=== PATIENT | female | born 1960 | race Caucasian/White ===

== ENCOUNTER → 2020-09-03 09:28 | Outpatient (CLI) | payer BC, SELFPAY ==
--- NOTE | ~2020-09-03 | XR_ITS ---
EXAMINATION: XR chest 2V 09/03/2020 09:52 INDICATION: Right upper lobe mass PROCEDURE: PA and lateral views of the chest COMPARISON: Comparison to multiple prior studies sequentially, with oldest reviewed study dated 05/24. FINDINGS: The lungs are clear. No evidence for right upper lobe mass. The cardiomediastinal silhouett e is within normal limits. There are no pleural effusions. There is no pneumothorax suspected. IMPRESSION: 1: NO ACUTE CARDIOPULMONARY DISEASE. Reviewed, dictated and finalized at location A. VIRTUALIZATION CONSULTANT
== END ==
PROVIDERS: PCP Family Medicine Sports Medicine; Visit Provider Internal Medicine Hematology & Oncology
DX: R91.8 Other nonspecific abnormal finding of lung field (principal)
CPT/HCPCS: 71046

== ENCOUNTER 2021-09-02 15:39 | Outpatient (CLI) | payer BC, SELFPAY ==
--- NOTE | ~2021-09-02 | XR_ITS ---
XR chest 2V DATE: 09/02/2021 16:00 INDICATION: Right upper lobe lung mass TECHNIQUE: PA and lateral views COMPARISON: 05/24/2019 CTA chest 05/26/2019 portable AP chest 09/05/2019 CT chest (examination showed resolution of right upper lobe mass density consistent with r esolved pneumonia) FINDINGS: Normal heart size. No hilar or mediastinal enlargement. The lungs are moderately hyperinfla roselyn but clear of infiltrate or consolidation. No pleural effusion or pulmonary vascular congestion or pneumothorax. Aortic arch calcification. Degenerative spurring of the thoracic spine. IMPRESSION: Moderate hyperinflation; no active cardiopulmonary disease Aortic calcification Reviewed, dictated and finalized at location A. AIDE
[2021-09-02 16:30] LABS: Basophils Absolute Auto 0.1 K/mm3 (0.0-0.1); Basophils Percent Auto 0.7 % (0.2-1.2); Eosinophils Absolute Auto 0.1 K/mm3 (0-0.3); Eosinophils Percent Auto 1.4 % (0-4.4); Hematocrit 36.9 % (37.0-47.0); Hemoglobin 12.1 g/dL (12.0-15.0); Immature Granulocyte Absolute 0.01 K/mm3 (0.00-0.031); Immature Granulocyte Percent A 0.1 % (0-0.5); Lymphocytes Absolute Auto 2.83 K/mm3 (0.9-3.2); Lymphocytes Percent Auto 40.7 % (18.3-44.2); Mean Corpuscular HGB Conc 32.8 g/dl (32-36); Mean Corpuscular Hemoglobin 28.9 pg (26-34); Mean Corpuscular Volume 88.3 fl (80-100); Mean Platelet Volume 9.9 fl (7.4-10.4); Monocytes Absolute Auto 0.5 K/mm3 (0.1-0.6); Monocytes Percent Auto 7.2 % (2.6-8.5); Neutrophils Absolute Auto 3.5 K/mm3 (1.3-6.7); Neutrophils Percent Auto 49.9 % (45.5-73.1); Platelet Count Result 275 k/mm3 (150-375); Red Blood Count 4.18 M/mm3 (4.2-5.4); Red Cell Distribution Width 12.6 % (11.5-14.5)
[2021-09-02 16:43] LABS: Alanine Aminotransferase 38 U/L (4-35); Albumin Level 4.3 g/dL (3.5-5.1); Alkaline Phosphatase 63 U/L (38-126); Anion Gap 7 mmol/L (8-16); Aspartate Amino Transferase 45 U/L (14-36); Bilirubin,Total 0.3 mg/dL (0.2-1.3); Blood Urea Nitrogen 14 mg/dL (7-17); Calcium 9.3 mg/dL (8.4-10.2); Carbon Dioxide 25 mmol/L (22-30); Chloride 107 mmol/L (98-107); Estimated Glomerular Filt Rate > 60; Glucose 110 mg/dL (65-110); Potassium 3.9 mmol/L (3.4-5.0); Sodium 139 mmol/L (137-145)
== END 2021-09-02 15:40 | disposition home or self-care (01) ==
LOC: ANHIMG 15:47
PROVIDERS: PCP Family Medicine Sports Medicine; Visit Provider Internal Medicine Hematology & Oncology
DX: R91.8 Other nonspecific abnormal finding of lung field (principal); I70.0 Atherosclerosis of aorta
CPT/HCPCS: 36415; 71046; 80053; 85025

== ENCOUNTER 2024-08-20 16:52 | Emergency (ER) | payer BC, SELFPAY ==
--- NOTE | ~2024-08-20 | CT_ITS ---
EXAMINATION: CT abdomen pelvis w con DATE: 08/20/2024 19:15 INDICATION: lower abd pain, nausea TECHNIQUE: Computed tomography (CT) of the abdomen and pelvis was performed with 100 mL Omnipaque-350 intravenous contrast. Automated exposure control and iterative reconstruction technique were employe d. The dose-length product was 345.89 mGy-cm. COMPARISON: 05/24/2019. FINDINGS: Lower thorax: Lingular and right middle lobe scar/atelectasis. Liver: Normal. Biliary/Gallbladder: Gallbladder is normal. No bile duct dilation. Pancreas: No mass or duct dilation. Spleen: Normal. Adrenals:No mass. Kidneys: No suspicious mass, obstructing stone, or hydronephrosis. GI tract: Mild distal esophageal and gastric wall edema. Scattered diverticuli. Focal, short segment focus of inflammatory stranding surrounding several pericolonic fat lobules adjacent to the proximal sigmoid. No small or large bowel dilation. Normal appendix. Mesentery/Peritoneum: No ascites, mass, or free air. Retroperitoneum: No mass. Atherosclerotic abdominal aortic and/or arterial calcifications. Pelvis: Minimal stranding at the bladder dome, likely reactive, related to the adjacent perisigmoid p rocess. Trace free pelvic fluid, also likely reactive. Soft Tissues: Soft tissues and body wall unremarkable. Bones: No acute osseous finding. IMPRESSION: Mild esophagitis/gastritis. Focal pericolonic inflammatory change at the proximal sigmoid, likely representing epiploic appendagi tis. Early/mild diverticulitis is not excluded but considered less likely. Reviewed, dictated and finalized at location K. NING MACHINE OPERATOR IMPRESSION: Mild esophagitis/gastritis. Focal pericolonic inflammatory change at the proximal sigmoid, likely represent ing epiploic appendagitis. Early/mild diverticulitis is not excluded but consid ered less likely.
[2024-08-20 17:04] VITALS: BP 144/83; PULSE 77; RESP 18; TEMP 36.4; O2SAT 99
[2024-08-20 17:30] VITALS: BP 153/80; PULSE 72; RESP 17; O2SAT 98
[2024-08-20] MEDS: DICYCLOMINE HCL 10 MG CAPSULE 20 MG PO (18:28)
[2024-08-20 18:29] VITALS: BP 135/84; PULSE 75; RESP 16; O2SAT 100
[2024-08-20 18:36] LABS: Basophils Absolute Auto 0.1 K/mm3 (0.0-0.1); Basophils Percent Auto 0.6 % (0.2-1.2); Eosinophils Absolute Auto 0.1 K/mm3 (0-0.3); Eosinophils Percent Auto 1.5 % (0-4.4); Hematocrit 35.2 % (37.0-47.0); Hemoglobin 11.7 g/dL (12.0-15.0); Immature Granulocyte Absolute 0.02 K/mm3 (0.00-0.031); Immature Granulocyte Percent A 0.2 % (0-0.5); Lymphocytes Absolute Auto 2.93 K/mm3 (0.9-3.2); Lymphocytes Percent Auto 34.5 % (18.3-44.2); Mean Corpuscular HGB Conc 33.2 g/dl (32-36); Mean Corpuscular Hemoglobin 28.9 pg (26-34); Mean Corpuscular Volume 86.9 fl (80-100); Mean Platelet Volume 10.2 fl (7.4-10.4); Monocytes Absolute Auto 0.6 K/mm3 (0.1-0.6); Monocytes Percent Auto 7.3 % (2.6-8.5); Neutrophils Absolute Auto 4.7 K/mm3 (1.3-6.7); Neutrophils Percent Auto 55.9 % (45.5-73.1); Platelet Count Result 278 k/mm3 (150-375); Red Blood Count 4.05 M/mm3 (4.2-5.4); Red Cell Distribution Width 12.7 % (11.5-14.5); White Blood Count 8.5 K/mm3 (4.5-10.0)
--- NOTE | 2024-08-20 18:39 | PC.NURSE ---
Pt requesting pain medication for her headache before it gets worse . EDP aware
[2024-08-20] MEDS: ACETAMINOPHEN 500 MG TABLET 1000 MG PO (18:42)
--- NOTE | 2024-08-20 18:42 | ED.ABDPAIN ---
HPI - Abdominal Pain General Chief Complaint: Abdominal Pain Stated Complaint: ABD Pain Time Seen by Provider: 08/20/24 17:32 Source: patient Mode of arrival: ambulatory Limitations: no limitations History of Present Illness HPI narrative: patient is a 64-year-old female who presents the ED with report of abdominal pain. Patient reports pain began a couple of days ago and was mostly present throughout lower abdomen. Now involving her upper abdomen as well. Reports intermittent nausea, denies vomiting. Denies diarrhea, constipation, urinary complaints, fevers. She does also report having a headache. Does have occasional history of headaches. Took Tylenol and ibuprofen earlier this afternoon with improvement of headache, minimal improvement of abd pain. Related Data Home Medications ?Medication ?Instructions ?Recorded ?Confirmed ?Last Taken ?Type atorvastatin 20 mg tablet 20 mg PO DAILY 09/15/19 09/27/21 Unknown History loratadine 10 mg tablet (Allergy 10 mg PO DAILY 09/15/19 09/27/21 Unknown History Relief (loratadine)) Allergies Allergy/AdvReac Type Severity Reaction Status Date / Time meloxicam Allergy Intermediate Rash Verified 08/20/24 17:29 bee venom protein (honey Allergy Swelling Verified 08/20/24 17:29 bee) (bees) Review of Systems Review of Systems: All systems reviewed & are unremarkable except as noted in HPI. All systems reviewed & are unremarkable except as noted in HPI and below PMFSH Past Medical History Medical History Amblyopia of right eye History of vaginal delivery x 3 High cholesterol 2016 Acid reflux 1989 Surgical History Surgical History H/O eye surgery 1962 H/O tubal ligation 1996 History of cryosurgery Cervical, 1986 H/O section 07/12/1997 H/O dilation and curettage 1988 Family History Family History Father Thrombocyte disorder Diabetes mellitus Hypertension High cholesterol Cerebrovascular accident Mother Hypertension High cholesterol Social History Social History Smoking status: Former smoker Smoking end date: 09/07/80 Alcohol intake: current Alcohol use details: Rarely Substance use: never Lack of Transportation: No Lack of Food: Never True Current Housing: I Have Housing Concerned About Future Housing: No Difficulty Paying Gas/Electric Bills: No Difficulty Paying for Meds: No Education: High School Diploma/GED Difficulty w/ Childcare or Family Care: No Living arrangements: with family Occupation/Education: occupation Gender identity (if verbalized by the patient): Female Sexual Orientation (if Verbalized by the Patient): Straight or Heterosexual Spiritual care concerns: No Exam Narrative: GENERAL: Well appearing, well-nourished, non-toxic, in no acute distress. HEAD: Normocephalic, atraumatic. EYE: R eye haziness, consistent with chronic glaucoma. RESPIRATORY: Airway patent, respirations nonlabored. Clear to auscultation bilaterally, no rales, rhonchi, wheezing. CARDIOVASCULAR: Regular rate and rhythm without murmurs, rubs, or gallops. ABDOMINAL: Soft, mild tenderness in prashanth lower quadrants, no rebound, nondistended. Normoactive BS. MUSCULOSKELETAL: Moves all extremities. No gross deformities. SKIN: Warm, dry, normal color. NEURO: A&O X3. Speech clear. Cranial nerves II-XII grossly intact. Steady gait. No ataxic movements. PSYCHIATRIC: Appropriate mood and affect. Normal interaction. Course Vital Signs Vital signs: Vital Signs Temperature 97.6 F 08/20/24 17:04 Pulse Rate 77 08/20/24 17:04 Respiratory Rate 18 08/20/24 17:04 Blood Pressure 144/83 H 08/20/24 17:04 Pulse Oximetry 99 08/20/24 17:04 Oxygen Delivery Room Air 08/20/24 17:04 Temperature 97.6 F 08/20/24 17:04 Pulse Rate 61 08/20/24 20:43 Respiratory Rate 18 08/20/24 20:43 Blood Pressure 137/72 08/20/24 20:43 Pulse Oximetry 99 08/20/24 20:43 Oxygen Delivery Room Air 08/20/24 17:04 MDM - Abdominal Pain MDM Narrative Medical decision making narrative: patient presented to ED with several day history of diffuse abdominal pain. Vital signs stable upon arrival. Patient is afebrile here. Cbc without leukocytosis. Stable H&H. CMP with potassium 3.3, replaced orally. Otherwise stable. Normal LFTs and lipase. Urinalysis is clear. Viral swabs were negative. CT scan of abdomen/pelvis was obtained showing epiploic appendagitis, possibly early/mild diverticulitis though less likely. Discussed lab and imaging findings with patient. Discussed diagnosis of epiploic appendagitis and management with anti-inflammatories. Recommended that if patient did not improve with anti-inflammatories in the next few days, to begin antibiotics for possible diverticulitis. Feel patient is very reasonable and would use antibiotics appropriately. She is in agreement with this plan. Also recommended close follow-up with PCP for further evaluation. Discussed strict return precautions. Patient voiced understanding. Discharged in stable condition. Medical Records Attestation: I reviewed the patient's medical records. Lab Data Attestation: I reviewed the patient's lab results. 08/20/24 18:27 08/20/24 18:27 Labs: Lab Results 08/20/24 08/20/24 Range/Units 18:27 18:35 WBC 8.5 (4.5-10.0) K/mm3 RBC 4.05 L (4.2-5.4) M/mm3 Hgb 11.7 L (12.0-15.0) g/dL Hct 35.2 L (37.0-47.0) % MCV 86.9 (80-100) fl MCH 28.9 (26-34) pg MCHC 33.2 (32-36) g/dl RDW 12.7 (11.5-14.5) % Plt Count 278 (150-375) k/mm3 MPV 10.2 (7.4-10.4) fl Immature Gran % (Auto) 0.2 (0-0.5) % Neut % (Auto) 55.9 (45.5-73.1) % Lymph % (Auto) 34.5 (18.3-44.2) % [place] % (Auto) 7.3 (2.6-8.5) % Eos % (Auto) 1.5 (0-4.4) % Baso % (Auto) 0.6 (0.2-1.2) % Lymph # (Auto) 2.93 (0.9-3.2) K/mm3 [place] # (Auto) 0.6 (0.1-0.6) K/mm3 Eos # (Auto) 0.1 (0-0.3) K/mm3 Baso # (Auto) 0.1 (0.0-0.1) K/mm3 Abs Immat Gran (auto) 0.02 (0.00-0.031) K/mm3 Absolute Neuts (auto) 4.7 (1.3-6.7) K/mm3 Absolute Nucleated RBC 0.000 (0.0-0.012) K/mm3 Nucleated RBC % 0.0 (0.0-0.2) % Sodium 140 (137-145) mmol/L Potassium 3.3 L (3.4-5.0) mmol/L Chloride 108 H (98-107) mmol/L Carbon Dioxide 26 (22-30) mmol/L Anion Gap 6 (4-12) mmol/L BUN 16 (7-17) mg/dL Creatinine 0.70 (0.7-1.0) mg/dL Estim Creat Clear Calc 69 ml/min Estimated GFR > 60 (59 - ) Glucose 111 H (65-110) mg/dL Calcium 8.9 (8.4-10.2) mg/dL Magnesium 2.0 (1.6-2.3) mg/dL Total Bilirubin 0.3 (0.2-1.3) mg/dL AST 24 (14-36) U/L ALT 17 (6-35) U/L Alkaline Phosphatase 74 (38-126) U/L Total Protein 7.0 (6.3-8.2) g/dL Albumin 4.1 (3.5-5.1) g/dL Lipase 134 (23-300) U/L Urine Color Yellow (Yellow) Urine Appearance Clear (Clear) Urine pH 6.0 (5.0-9.0) Ur Specific [place] 1.006 (1.001-1.035) Urine Protein Negative (Negative) mg/dL Urine Glucose (UA) Negative (Negative) mg/dL Urine Ketones Negative (Negative) mg/dL Ur Blood (Man) Negative (Negative) Urine Nitrate Negative (Negative) Urine Bilirubin Negative (Negative) Urine Urobilinogen 0.2 (<2.0) mg/dL Leukocyte Esterase Rfl Trace H (Negative) QUIRINO/UL Urine RBC 0-2 (0-2) /hpf Urine WBC 0-5 (0-3) /hpf Ur Squamous Epith Cells None seen (Few) /hpf Urine Bacteria None seen /hpf Urine Casts 0-2 Influenza A (RT-PCR) Negative (Negative) Influenza B (RT-PCR) Negative (Negative) RSV (RT-PCR) Negative (Negative) SARS-CoV-2 RNA (RT-PCR) Negative (Negative) Imaging Data Attestation: I personally reviewed and interpreted this imaging study as follows: Radiologist's impression: ITS Impressions Abdomen/Pelvis CT 08/20/24 19:18 IMPRESSION: Mild esophagitis/gastritis. Focal pericolonic inflammatory change at the proximal sigmoid, likely representing epiploic appendagitis. Early/mild diverticulitis is not excluded but considered less likely. Discharge Plan Discharge Clinical Impression: Epiploic appendagitis Patient Disposition: Home, Self-Care Condition: Stable Instructions: Antibiotic Form, Diverticulitis (ED), Diverticulitis Diet (ED), Epiploic Appendagitis (ED) Additional Instructions: Your imaging here showed evidence of epiploic appendagitis. Recommend taking ibuprofen scheduled, 600 mg every 6 hours, for pain/inflammation. If pain does not improve within the next several days, begin taking antibiotics as prescribed for possible diverticulitis. Follow-up closely with your primary care doctor for further evaluation and management. Return to the ED is worsening or severe pain, unable to keep down food or drink, fevers, severe constipation or diarrhea, rectal bleeding, dark black stools, or any other symptoms of concern. Patient Language: [place] Prescriptions: New amoxicillin-pot clavulanate 875-125 mg tablet 1 tablet PO Q12H 7 Days Qty: 14 0RF No Action atorvastatin 20 mg tablet 20 mg PO DAILY loratadine [Allergy Relief (loratadine)] 10 mg tablet 10 mg PO DAILY estradiol [Estrace] 0.01 % (0.1 mg/gram) cream See Rx Instructions vaginal DAILY Qty: 42.5 4RF Rx Instructions: apply a fingertip amount to affected area daily for 2 weeks and then as needed Follow-up/Referrals: Araceli,Jarad Talamantes MD [Primary Care Provider] - Time of Disposition: 20:30
[2024-08-20 18:52] LABS: Alanine Aminotransferase 17 U/L (6-35); Albumin Level 4.1 g/dL (3.5-5.1); Alkaline Phosphatase 74 U/L (38-126); Anion Gap 6 mmol/L (4-12); Aspartate Amino Transferase 24 U/L (14-36); Bilirubin,Total 0.3 mg/dL (0.2-1.3); Blood Urea Nitrogen 16 mg/dL (7-17); Calcium 8.9 mg/dL (8.4-10.2); Carbon Dioxide 26 mmol/L (22-30); Chloride 108 mmol/L (98-107); Estimated CRCL calculation 69 ml/min; Estimated Glomerular Filt Rate > 60; Glucose 111 mg/dL (65-110); Lipase 134 U/L (23-300); Potassium 3.3 mmol/L (3.4-5.0); Sodium 140 mmol/L (137-145)
[2024-08-20 18:52] LABS: Add Urine Microscopic? YES; Appearance Urine Clear (Clear); Bacteria Urine None Seen /hpf; Bilirubin Urine Negative (Negative); Blood Urine Negative (Negative); Color Urine Yellow (Yellow); Glucose Urine UA Negative (Negative); Ketones Urine Negative (Negative); Leukocyte Esterase Ur Trace LEU/UL (Negative); Nitrate Urine Negative (Negative); Non Pathogenic Casts 0-2; Protein Urine Negative (Negative); RBC Urine 0-2 /hpf (0-2); Specific Grav Ur 1.006 (1.001-1.035); Squamous Epithelial Cell Urine None Seen /hpf (Few); Urobilinogen Urine 0.2 mg/dL (<2.0); WBC Urine 0-5 /hpf (0-3)
[2024-08-20 19:12] LABS: Influenza A QL RT-PCR Negative (Negative); Influenza B QL RT-PCR Negative (Negative); RSV RNA, RT-PCR Negative (Negative); SARS-CoV-2 RNA PCR Negative (Negative)
--- NOTE | 2024-08-20 19:16 | PC.NURSE ---
Report given to Ana PAUL, all questions answered
[2024-08-20] MEDS: POTASSIUM CHLORIDE 20 MEQ PACKET (FOR LIQUID) PO (19:22)
[2024-08-20 19:29] VITALS: BP 142/76; PULSE 71; RESP 18; O2SAT 100
[2024-08-20] MEDS: IBUPROFEN 600 MG TABLET PO (20:40)
[2024-08-20 20:43] VITALS: BP 137/72; PULSE 61; RESP 18; O2SAT 99
== END 2024-08-20 20:44 | disposition home or self-care (01) ==
PROVIDERS: Emergency Provider Physician Assistant; PCP Family Medicine Sports Medicine
DX: K63.89 Other specified diseases of intestine (principal); Z20.822 Contact with and (suspected) exposure to COVID-19; Z87.891 Personal history of nicotine dependence
CPT/HCPCS: 36415; 74177; 80053; 81001; 83690; 83735; 85025; 87637; 99284; A9270; Q9967